=== PATIENT | female | born 1960 | race Caucasian/White ===

== ENCOUNTER → 2017-09-18 | Day surgery (SDC) | payer BC, MEDICARE ==
[~2017-09-18] MED LIST: *PACU ONLY* KETAMINE HCL 10 MG/ML (20ML) VIAL IV ONE; ACETAMINOPHEN 1,000 MG/100 ML BTL IV ONE; BUPIVACAINE 0.5% W/EPI MPF 30 ML VIAL IVP ONE; CEFAZOLIN 2 Gram 2 GM/50 ML BAG IVPB ONE; KETOROLAC 30 MG/ML VIAL IVP ONE; LIDOCAINE 1% MDV (10MG/ML) 20ML VIAL SQ ONE; METHYLPREDNISOLONE 40MG/VIAL IM ONE; PROPOFOL 10 MG/ML VIAL IV ONE
--- NOTE | 2017-09-19 20:20 | Operative Note ---
DATE OF SURGERY: 09/18/2017 PREOPERATIVE DIAGNOSIS: INTERNAL DERANGEMENT OF THE LEFT KNEE LEFT KNEE. POSTOPERATIVE DIAGNOSES: 1. GRADE 3 CHONDROMALACIA PATELLA. 2. LARGE UNSTABLE FLAP TEAR INVOLVING THE ANTERIOR MEDIAL HORN OF THE MEDIAL MENISCUS. 3. SMALL FRINGE TEAR INVOLVING THE ANTERIOR LATERAL HORN OF THE LATERAL MENISCUS. PROCEDURE: 1. LEFT KNEE ARTHROSCOPY WITH PARTIAL MEDIAL AND LATERAL MENISCECTOMIES. 2. LEFT KNEE ARTHROSCOPY WITH CHONDROPLASTY OF THE PATELLOFEMORAL COMPARTMENT. STAFF SURGEON: DR. ADILENE FIELD ANESTHESIA: GENERAL. PREPARATION: CHLORAPREP. INDIVIDUAL CONSIDERATIONS: NONE. PROCEDURE: The patient was taken to the Operating Room and placed supine on the operating table. She had a successful induction with general anesthetic. Her left lower extremity was prepped and then draped in the usual fashion. The patient had a superior lateral inflow cannula placed. The skin was infiltrated with 0.5% Marcaine with Epinephrine prior. The knee was then inflated with normal saline. An inferior medial and an inferior lateral portal were made in a similar fashion. The arthroscope was introduced through the inferior lateral portal up into the pouch. The patellofemoral compartment showed unstable grade 3 changes throughout the patella, which were smoothed, and a small lesion in the lateral aspect of the notch, which was debrided also. Medially, she had a large unstable flap tear involving the anterior medial horn of the medial meniscus. This was debrided back to stable cartilage with basket forceps and a shaver. Articular cartilage medially looked good. In the notch, the cruciates were normal. Laterally, she had a fringe tear involving the anterior lateral horn of the lateral meniscus, which was smoothed with a shaver. The knee was then irrigated out with saline to remove loose floating debris. The portals were closed with maia. No loose bodies were seen in either gutter. 20 mL of 0.5% Marcaine with Epinephrine along with 40 mg of Depo- Medrol were injected into the knee and a sterile Bulkee compressive dressing was applied. The patient tolerated the procedure well. Needle and sponge counts were correct. Estimated blood loss was minimal and she was taken back to Recovery in good condition. There were no complications. JOB NUMBER: [id number] [facility]
== END | disposition home or self-care (01) ==
LOC: SUR 08:02
PROVIDERS: ATTEND Orthopaedic Surgery
DX: S83.242A Other tear of medial meniscus, current injury, left knee, initial encounter (principal); S83.282A Other tear of lateral meniscus, current injury, left knee, initial encounter; M22.42 Chondromalacia patellae, left knee; R56.9 Unspecified convulsions; Z79.01 Long term (current) use of anticoagulants; D86.9 Sarcoidosis, unspecified; G47.33 Obstructive sleep apnea (adult) (pediatric); Z86.718 Personal history of other venous thrombosis and embolism
CPT/HCPCS: J1030; J1885